=== PATIENT | male | born 1990 | race American Indian/Alaskan Native ===

== ENCOUNTER 2018-12-07 09:50 | Emergency (ER) | payer SELFPAY ==
--- NOTE | 2018-12-07 11:50 | Emergency Department Report ---
ED ENT HPI - General Chief complaint: Dental/Oral Stated complaint: LFT SIDE GUMS SWELLING/PAIN Time Seen by Provider: 12/07/18 11:30 Source: patient Mode of arrival: Ambulatory Limitations: No Limitations - History of Present Illness Initial comments: Patient is a 28-year-old -[place] male who's had problems with tooth #19 for some time and is worn down to the gum. Patient states he has some facial swelling now at the angle of the jaw and increased pain. Persistent pain is intense in severity as aching and throbbing. Patient denies any problems swallowing or breathing at this time. Patient also denies any fevers chills nausea vomiting. - Related Data Previous Rx's Medication Instructions Recorded Last Taken Type Clindamycin [Clindamycin CAP] 300 mg PO Q8H #21 cap 12/07/18 Unknown Rx HYDROcodone/ACETAMINOPHEN 1 each PO Q6HR PRN #12 tablet 12/07/18 Unknown Rx [Hydrocodone-Acetamin 5-325 mg] Ibuprofen [Ibu] 800 mg PO Q8H PRN #20 tablet 12/07/18 Unknown Rx Allergies Allergy/AdvReac Type Severity Reaction Status Date / Time No Known Allergies Allergy Verified 12/07/18 09:52 ED Dental HPI - General Chief complaint: Dental/Oral Stated complaint: LFT SIDE GUMS SWELLING/PAIN Time Seen by Provider: 12/07/18 11:30 Source: patient Mode of arrival: Ambulatory Limitations: No Limitations - Related Data Previous Rx's Medication Instructions Recorded Last Taken Type Clindamycin [Clindamycin CAP] 300 mg PO Q8H #21 cap 12/07/18 Unknown Rx HYDROcodone/ACETAMINOPHEN 1 each PO Q6HR PRN #12 tablet 12/07/18 Unknown Rx [Hydrocodone-Acetamin 5-325 mg] Ibuprofen [Ibu] 800 mg PO Q8H PRN #20 tablet 12/07/18 Unknown Rx Allergies Allergy/AdvReac Type Severity Reaction Status Date / Time No Known Allergies Allergy Verified 12/07/18 09:52 ED Review of Systems ROS: Stated complaint: LFT SIDE GUMS SWELLING/PAIN Other details as noted in HPI Comment: All other systems reviewed and negative ED Past Medical Hx - Past Medical History Previous Medical History?: No - Surgical History Past Surgical History?: No - Social History Smoking Status: Never Smoker Substance Use Type: None - Medications Home Medications: Home Medications Medication Instructions Recorded Confirmed Last Taken Type Clindamycin [Clindamycin CAP] 300 mg PO Q8H #21 cap 12/07/18 Unknown Rx HYDROcodone/ACETAMINOPHEN 1 each PO Q6HR PRN #12 tablet 12/07/18 Unknown Rx [Hydrocodone-Acetamin 5-325 mg] Ibuprofen [Ibu] 800 mg PO Q8H PRN #20 tablet 12/07/18 Unknown Rx ED Physical Exam - General Limitations: No Limitations General appearance: alert, in no apparent distress - Head Head exam: Present: atraumatic, normocephalic, other (patient was swelling to the angle of the left jaw.) - Eye Eye exam: Present: normal appearance - ENT ENT exam: Present: mucous membranes moist - Expanded ENT Exam Expanded Mouth exam: Present: normal external inspection, tongue normal. Absent: trismus, muffled voice, tongue elevation Teeth exam: Present: dental caries, fractured tooth # (19) - Neck Neck exam: Present: normal inspection - Respiratory Respiratory exam: Present: normal lung sounds bilaterally. Absent: respiratory distress - Cardiovascular Cardiovascular Exam: Present: regular rate, normal rhythm. Absent: systolic murmur, diastolic murmur, rubs, gallop - GI/Abdominal GI/Abdominal exam: Present: soft, normal bowel sounds - Rectal Rectal exam: Present: deferred - Extremities Exam Extremities exam: Present: normal inspection - Back Exam Back exam: Present: normal inspection - Neurological Exam Neurological exam: Present: alert, oriented X3 - Psychiatric Psychiatric exam: Present: normal affect, normal mood - Skin Skin exam: Present: warm, dry, intact, normal color. Absent: rash ED Course Vital Signs 12/07/18 10:15 Temperature 99.1 F Pulse Rate 65 Respiratory 20 Rate Blood Pressure 131/84 O2 Sat by Pulse 100 Oximetry ED Medical Decision Making - Medical Decision Making Patient with a dental abscess secondary to dental caries with facial cellulitis present at this time. Patient was started on antibiotics and given pain meds will be discharged home to follow-up with oral surgeon Critical care attestation.: If time is entered above; I have spent that time in minutes in the direct care of this critically ill patient, excluding procedure time. ED Disposition Clinical Impression: Dental abscess, Facial cellulitis Disposition: TO HOME OR SELFCARE Is pt being admited?: No Does the pt Need Aspirin: No Condition: Stable Instructions: Dental Abscess (ED) Referrals: SELENA ASTORGA DDS [Staff Physician] - 3-5 Days Time of Disposition: 11:49
[2018-12-07 12:02] VITALS: BP 138/71
== END 2018-12-07 12:01 | disposition home or self-care (01) ==
LOC: ED 09:50
DX: K04.7 Periapical abscess without sinus (principal); L03.211 Cellulitis of face